=== PATIENT | female | born 1955 | race Caucasian/White ===

== ENCOUNTER 2025-05-11 11:46 | Emergency (ER) | payer MEDICARE | END 2025-05-11 14:02 | disposition home or self-care (01) | LOC: JP.ED 11:46 | DX: S62.101A Fracture of unspecified carpal bone, right wrist, initial encounter for closed fracture (principal); Z79.899 Other long term (current) drug therapy; Z88.0 Allergy status to penicillin; Z91.018 Allergy to other foods; Z90.49 Acquired absence of other specified parts of digestive tract; W19.XXXA Unspecified fall, initial encounter | CPT/HCPCS: 29125; 73110; 99283; A9270 ==